=== PATIENT | male | born 1975 | race Caucasian/White ===

== ENCOUNTER 2018-05-15 20:17 | Emergency (ER) | payer SELFPAY ==
[~2018-05-15] VITALS: Ht 188 cm; Wt 79.4 kg
[2018-05-15] MEDS ORDERED: IBUPROFEN 600MG TABLET PO ONE (23:30)
[2018-05-16] MEDS ORDERED: TETANUS, DIPHTHERIA, PERTUSSIS VAC/PF 0.5ML (>7YR OLD) IM ONE (01:00)
[2018-05-16 01:17] VITALS: BP 136/117
== END 2018-05-16 01:21 | disposition home or self-care (01) ==
LOC: ER 20:17
DX: S62.620A Displaced fracture of middle phalanx of right index finger, initial encounter for closed fracture (principal); S20.91XA Abrasion of unspecified parts of thorax, initial encounter; M79.645 Pain in left finger(s); J45.909 Unspecified asthma, uncomplicated; F12.10 Cannabis abuse, uncomplicated; F15.10 Other stimulant abuse, uncomplicated; F17.200 Nicotine dependence, unspecified, uncomplicated; Y08.89XA Assault by other specified means, initial encounter; Y93.89 Activity, other specified; Y92.89 Other specified places as the place of occurrence of the external cause; Y99.8 Other external cause status
CPT/HCPCS: 29125; 73130; 73140; 90471; 90715; 99283

== ENCOUNTER 2018-08-03 02:17 | Emergency (ER) | payer SELFPAY ==
[2018-08-03 03:17] VITALS: BP 114/65
== END 2018-08-03 03:17 | disposition left against medical advice (07) ==
LOC: ER 02:17
DX: S69.90XA Unspecified injury of unspecified wrist, hand and finger(s), initial encounter (principal); Z53.21 Procedure and treatment not carried out due to patient leaving prior to being seen by health care provider; X58.XXXA Exposure to other specified factors, initial encounter; Y93.89 Activity, other specified; Y92.89 Other specified places as the place of occurrence of the external cause; Y99.8 Other external cause status

== ENCOUNTER 2018-08-12 09:21 | Emergency (ER) | payer MEDICAID, OTHER ==
[~2018-08-12] VITALS: Ht 188 cm; Wt 79.7 kg
[2018-08-12] MEDS ORDERED: IBUPROFEN 600MG TABLET PO ONE (12:00)
[2018-08-12 12:20] VITALS: BP 112/70
== END 2018-08-12 12:48 | disposition home or self-care (01) ==
LOC: ER 09:21
DX: S62.650A Nondisplaced fracture of middle phalanx of right index finger, initial encounter for closed fracture (principal); S62.015A Nondisplaced fracture of distal pole of navicular [scaphoid] bone of left wrist, initial encounter for closed fracture; F12.10 Cannabis abuse, uncomplicated; F15.10 Other stimulant abuse, uncomplicated; F17.210 Nicotine dependence, cigarettes, uncomplicated; Y08.02XA Assault by strike by baseball bat, initial encounter; Y93.89 Activity, other specified; Y92.89 Other specified places as the place of occurrence of the external cause
CPT/HCPCS: 29125; 29130; 73110; 73130; 99284

== ENCOUNTER 2018-08-12 22:00 | Emergency (ER) | payer MEDICAID, OTHER ==
[~2018-08-12] VITALS: Ht 188 cm; Wt 88.0 kg
[2018-08-12] MEDS ORDERED: IBUPROFEN 600MG TABLET PO ONE (23:30)
[2018-08-12] MEDS ORDERED: AMOXICILLIN/POTASSIUM CLAVULANATE 875/125MG TAB PO ONE (23:30)
[2018-08-12 23:55] VITALS: BP 110/65
== END 2018-08-12 23:57 | disposition home or self-care (01) ==
LOC: ER 22:00
DX: K02.9 Dental caries, unspecified (principal); K08.89 Other specified disorders of teeth and supporting structures; J45.909 Unspecified asthma, uncomplicated; F12.10 Cannabis abuse, uncomplicated; F17.210 Nicotine dependence, cigarettes, uncomplicated
CPT/HCPCS: 99283

== ENCOUNTER 2018-09-19 17:28 | Emergency (ER) | payer MEDICAID, OTHER ==
[~2018-09-19] VITALS: Ht 188 cm; Wt 80.0 kg
[2018-09-19 17:46] VITALS: BP 97/58
== END 2018-09-19 19:30 | disposition left against medical advice (07) ==
LOC: ER 17:28
DX: M54.6 Pain in thoracic spine (principal); Z53.21 Procedure and treatment not carried out due to patient leaving prior to being seen by health care provider

== ENCOUNTER 2021-02-25 03:20 | Emergency (ER) | payer MEDICAID, OTHER ==
[~2021-02-25] VITALS: Ht 188 cm; Wt 91.0 kg
[2021-02-25 03:44] VITALS: BP 141/82
[2021-02-25] MEDS ORDERED: ACETAMINOPHEN 325MG TABLET PO ONE (04:30)
[2021-02-25] MEDS ORDERED: TOPUD MT (04:49)
== END 2021-02-25 05:15 | disposition home or self-care (01) ==
LOC: ER 04:02
DX: M79.672 Pain in left foot (principal); J45.909 Unspecified asthma, uncomplicated; F12.10 Cannabis abuse, uncomplicated
CPT/HCPCS: 99282

== ENCOUNTER 2021-04-22 09:29 | Emergency (ER) | payer OTHER ==
[~2021-04-22] VITALS: Ht 182.9 cm; Wt 90.0 kg
[~2021-04-22 09:29] MED LIST: TOPUD MT
[2021-04-22 10:07] VITALS: BP 128/75
[2021-04-22] MEDS ORDERED: ACETAMINOPHEN 325MG TABLET PO ONE (10:15)
[2021-04-22] MEDS ORDERED: TOPUD MT (12:20)
== END 2021-04-22 12:26 | disposition home or self-care (01) ==
LOC: ER 09:29
DX: M79.672 Pain in left foot (principal); M79.671 Pain in right foot; B35.1 Tinea unguium; J45.909 Unspecified asthma, uncomplicated; F12.90 Cannabis use, unspecified, uncomplicated
CPT/HCPCS: 73630; 99283

== ENCOUNTER 2021-07-06 16:21 | Emergency (ER) | payer OTHER ==
[~2021-07-06] VITALS: Ht 170.2 cm; Wt 66.0 kg
[2021-07-06 16:57] VITALS: BP 125/75
[2021-07-06] MEDS ORDERED: ALBU6.7H15 INH (17:56)
== END 2021-07-06 18:16 | disposition home or self-care (01) ==
LOC: ER 16:21
DX: U07.1 COVID-19 (principal); F12.10 Cannabis abuse, uncomplicated
CPT/HCPCS: 87426; 99283

== ENCOUNTER 2021-09-14 20:45 | Emergency (ER) | payer OTHER ==
[~2021-09-14] VITALS: Ht 188 cm; Wt 83.4 kg
[~2021-09-14 20:45] MED LIST changes: +ALBU6.7H15 INH
[2021-09-14 21:06] VITALS: BP 117/69
== END 2021-09-15 01:00 | disposition left against medical advice (07) ==
LOC: ER 20:45
DX: Z53.21 Procedure and treatment not carried out due to patient leaving prior to being seen by health care provider (principal)
CPT/HCPCS: 99281

== ENCOUNTER 2021-11-28 15:27 | Emergency (ER) | payer OTHER ==
[~2021-11-28] VITALS: Ht 177.8 cm; Wt 90.0 kg
[2021-11-28 16:26] LABS: BASOPHILS % 0.5 % (0.0-2.0); EOSINOPHILS % 1.7 % (0.0-5.0); HEMOGLOBIN. 12.2 g/dL (14.0-18.0); LYMPHOCYTES % 19.2 % (20.0-50.0); MEAN CORPUSCULAR HEMOGLOBIN 30.5 pg (28.0-32.0); MEAN CORPUSCULAR VOLUME 90.1 fL (80.0-94.0); MEAN PLATELET VOLUME 7.4 fl (7.4-10.4); MONOCYTES % 6.9 % (2.0-8.0); NEUTROPHILS % 71.7 % (40.0-76.0); PLATELET 427 x1000/uL (130-400); RED BLOOD CELL COUNT 3.99 mill/uL (4.7-6.1); RED CELL DISTRIBUTION WIDTH 14.5 % (11.6-14.6)
[2021-11-28 16:31] LABS: CHLORIDE 107 mEq/L (98-107)
[2021-11-28 16:40] LABS: ETHANOL BLOOD < 10 mg/dL
[2021-11-30] MEDS ORDERED: ACETAMINOPHEN 325MG TABLET PO ONE (02:45)
[2021-11-30] MEDS ORDERED: ACETAMINOPHEN 325MG TABLET PO NR ×2 (03:15→10:00)
[2021-11-30 08:00] VITALS: BP 130/84
== END 2021-11-30 11:10 | disposition home or self-care (01) ==
LOC: ER 15:27
DX: F16.10 Hallucinogen abuse, uncomplicated (principal); F12.10 Cannabis abuse, uncomplicated; I10 Essential (primary) hypertension; F17.210 Nicotine dependence, cigarettes, uncomplicated; Z59.00 Homelessness unspecified
CPT/HCPCS: 36415; 80053; 80320; 85025; 99285; G0480

== ENCOUNTER 2021-12-28 20:08 | Emergency (ER) | payer OTHER ==
[~2021-12-28] VITALS: Ht 188 cm; Wt 79.5 kg
[2021-12-28 21:09] VITALS: BP 115/59
[2021-12-29] MEDS ORDERED: IBUP-2029 MT (04:09)
== END 2021-12-29 04:30 | disposition home or self-care (01) ==
LOC: ER 20:08
DX: M25.571 Pain in right ankle and joints of right foot (principal); M25.572 Pain in left ankle and joints of left foot; F16.10 Hallucinogen abuse, uncomplicated
CPT/HCPCS: 73610; 99283

== ENCOUNTER 2022-03-06 02:09 | Emergency (ER) | payer OTHER ==
[~2022-03-06] VITALS: Ht 188 cm; Wt 75.5 kg
[~2022-03-06 02:09] MED LIST changes: +IBUP-2029 MT
[2022-03-06 02:24] VITALS: BP 122/75
== END 2022-03-06 05:19 | disposition left against medical advice (07) ==
LOC: ER 02:09
DX: Z53.21 Procedure and treatment not carried out due to patient leaving prior to being seen by health care provider (principal)

== ENCOUNTER 2022-04-08 15:44 | Emergency (ER) | payer OTHER ==
[~2022-04-08] VITALS: Ht 188 cm; Wt 91.0 kg
[2022-04-08 15:57] VITALS: BP 122/82
== END 2022-04-08 16:35 ==
LOC: ER 15:44
DX: Z02.79 Encounter for issue of other medical certificate (principal)
CPT/HCPCS: 99283

== ENCOUNTER 2022-08-17 18:50 | Emergency (ER) | payer OTHER ==
[~2022-08-17] VITALS: Ht 188 cm; Wt 90.0 kg
[2022-08-17] MEDS ORDERED: LIDOCAINE HCL 1% 20ML VIAL (Pyxis) INJ INFIL ONE (21:15)
[2022-08-17] MEDS ORDERED: AMOX1TAB16 MT (23:30)
[2022-08-17] MEDS ORDERED: IBUP-2028 MT (23:30)
[2022-08-17 23:45] VITALS: BP 140/68
[2022-08-18] MEDS ORDERED: IBUPROFEN 400MG TABLET PO ONE
== END 2022-08-17 23:45 | disposition home or self-care (01) ==
LOC: ER 18:50
DX: L03.011 Cellulitis of right finger (principal)
CPT/HCPCS: 10060; 99283; Z7610

== ENCOUNTER 2022-08-19 17:02 | Emergency (ER) | payer OTHER ==
[~2022-08-19] VITALS: Ht 177.8 cm; Wt 75.0 kg
[~2022-08-19 17:02] MED LIST changes: +AMOX1TAB16 MT; +IBUP-2028 MT
[2022-08-19 17:06] VITALS: BP 153/90
== END 2022-08-19 20:00 | disposition left against medical advice (07) ==
LOC: ER 17:02
DX: Z53.21 Procedure and treatment not carried out due to patient leaving prior to being seen by health care provider (principal)

== ENCOUNTER 2022-09-04 11:36 | Emergency (ER) | payer OTHER ==
[~2022-09-04] VITALS: Ht 182.9 cm; Wt 82.0 kg
[2022-09-04 11:44] VITALS: BP 129/81
== END 2022-09-04 13:39 | disposition left against medical advice (07) ==
LOC: ER 11:36
DX: Z53.21 Procedure and treatment not carried out due to patient leaving prior to being seen by health care provider (principal)
CPT/HCPCS: 99281

== ENCOUNTER 2022-09-11 20:50 | Emergency (ER) | payer OTHER ==
[~2022-09-11] VITALS: Ht 188 cm; Wt 83.7 kg
[2022-09-11 20:57] VITALS: BP 110/77
== END 2022-09-11 21:37 | disposition left against medical advice (07) ==
LOC: ER 21:32
DX: Z53.21 Procedure and treatment not carried out due to patient leaving prior to being seen by health care provider (principal)
CPT/HCPCS: 99281

== ENCOUNTER 2023-11-22 14:20 | Emergency (ER) | payer OTHER ==
[~2023-11-22] VITALS: Ht 188 cm; Wt 79.0 kg
[2023-11-22 14:46] VITALS: BP 149/104; PULSE 121; RESP 20; TEMP 97.9; O2SAT 100
[2023-11-22] MEDS ORDERED: KETOROLAC 30MG/ML VIAL IM ONE (17:45)
== END 2023-11-22 21:28 | disposition home or self-care (01) ==
LOC: ER 14:20
DX: R51.9 Headache, unspecified (principal); Z79.899 Other long term (current) drug therapy
CPT/HCPCS: 70450; 99284; J1885; Z7610 ×3

== ENCOUNTER 2023-11-29 11:39 | Emergency (ER) | payer OTHER ==
[~2023-11-29] VITALS: Ht 182.9 cm; Wt 75.0 kg
[2023-11-29 11:43] VITALS: BP 138/84; PULSE 92; RESP 18; TEMP 98.5; O2SAT 99
== END 2023-11-29 13:09 | disposition home or self-care (01) ==
LOC: ER 12:18
DX: F15.10 Other stimulant abuse, uncomplicated (principal); F19.90 Other psychoactive substance use, unspecified, uncomplicated; Z88.0 Allergy status to penicillin
CPT/HCPCS: 99283

== ENCOUNTER 2024-01-12 12:16 | Emergency (ER) | payer OTHER ==
[~2024-01-12] VITALS: Ht 185.4 cm; Wt 86.5 kg
[2024-01-12 12:20] VITALS: BP 122/85; PULSE 99; RESP 16; TEMP 97.3; O2SAT 96
[2024-01-12] MEDS ORDERED: OLANZAPINE 5MG TABLET ODT PO STA (12:32)
== END 2024-01-12 12:38 | disposition left against medical advice (07) ==
LOC: ER 12:16
DX: F20.9 Schizophrenia, unspecified (principal)
CPT/HCPCS: 99283